=== PATIENT | female | born 1970 | race Caucasian/White ===

== ENCOUNTER → 2018-08-28 | Outpatient (CLI) | payer BC ==
[~2018-08-28] VITALS: Ht 157.5 cm; Wt 63.0 kg
[~2018-08-28] MED LIST: ALLEGRA ALLERG180 MG PO; MOBIC7.5 MG PO
--- NOTE | ~2018-08-28 | HPC ---
[facility] [address] [place] [address] PAIN MANAGEMENT CONSULTATION Name: AWILDA GONZALEZ Room #: [facility].#: [id number] Admission: 08/28/18 Attend Phys: Tio Abebe DO Discharge: Date of : 68 Report #: [id number] THIS REPORT FOR: //name// CC: Anjelica Abebe Referring Physician DATE OF SERVICE: 08/28/2018 CHIEF COMPLAINT: Neck pain and upper back pain. HISTORY OF PRESENT ILLNESS: As you know, the patient is a very pleasant 48-year-old female who reports longstanding neck pain and upper back pain that began in 01/2016, no inciting injury or trauma. The patient indicates pain is aching and constant in sensation. She indicates pain today of 6/10. States that lifting and using her upper extremities tend to exacerbate symptoms as does progression throughout the day. She states Aleve, heat and cold compresses and muscle relaxants tend to improve pain slightly. She has been referred to our service to discuss treatment options for suspected cervical radicular symptoms. ALLERGIES: KEFLEX. CURRENT MEDICATIONS: Fexofenadine 180 mg per day, alprazolam 0.25 mg q. day. SOCIAL HISTORY: The patient denies tobacco, alcohol, IV or illicit drug use. She is working, not receiving workmen's compensation, unaccompanied today. IMAGING: No imaging available. PHYSICAL EXAMINATION: VITAL SIGNS: Blood pressure 126/74, pulse 91, respiratory rate 16 and unlabored. The patient is 100% on room air. Height 5 feet 2 inches tall, weight 138.8 pounds, BMI calculated 25.4. GENERAL: Well-developed, well-nourished, well-hydrated 48-year-old female appearing her stated age, placing current pain score around 6/10. HEENT: Normocephalic, atraumatic. Pupils equal, round, reactive to light. Extraocular muscles are intact. Sclerae nonicteric without injection. NEUROLOGIC: Cranial nerves 2-12 grossly intact. Speech is fluent. The patient deemed an excellent historian. LUNGS: Clear, no wheeze, rhonchi or rales. CARDIOVASCULAR: Regular. No appreciable gallop, no rub. ABDOMEN: Soft, nontender, nondistended, normoactive bowel sounds. EXTREMITIES: Show no clubbing, no cyanosis, and no edema. MUSCULOSKELETAL: There is palpatory tenderness over the paraspinal musculature of the cervical spine, no spinous process tenderness. Upper extremity strength appears symmetrical 5/5, muscle bulk and tone equal and symmetrical when [address] [address] PAIN MANAGEMENT CONSULTATION Name: AWILDA GONZALEZ Anne Room #: [facility] Malini#: [id number] Admission: 08/28/18 Attend Phys: Tio Abebe DO Discharge: Date of : 68 Report #: [id number] comparing left upper extremity to right. Deep tendinous reflexes are symmetrical with biceps, brachioradialis and triceps. Spurling's test is equivocal. Cervical provocation testing is met with increasing pain, specifically with rotation and lateral flexion, mild to moderate restriction of motion with these maneuvers. ASSESSMENT: 1. Cervical radiculopathy. 2. Cervical spondylosis with radiculopathy. 3. Myofascial pain. 4. Chronic intractable pain. PLAN: 1. Based on today's physical exam and history the patient provides, the description the patient uses in regards to pain, the distribution of symptoms that the patient has been experiencing and the longevity of the symptomology, the likely source of this pain is cervical radiculopathy. The patient has been advised in the past she has cervical facet changes as well as uncovertebral facet changes from x-ray imaging. This would correlate with the patient's finding of bilateral nature, likely due to cervical spinal stenosis or to a lesser degree bilateral neural foraminal stenosis. We discussed with the patient treatment options for cervical radicular symptoms today, the following was discussed. We discussed physical therapy, stretching exercise and core strengthening for which the patient has been involved in the past and continues to do on a daily basis at home. We encouraged the patient to continue this activity. We discussed medication management with the addition of a neuropathic pain medication and a nonsteroidal anti-inflammatory. The patient was started on this at our initial visit at our [facility] office. This has not provided significant improvement. She is having no side effects, but no significant improvement. We discussed cervical epidural injections under fluoroscopic guidance and surgical options as other treatment approaches. After reviewing risks and benefits of all proposed treatment options, the patient chose to undergo cervical epidural injection under fluoroscopic guidance. The patient has been advised risks and benefits of a cervical epidural injection. These risks include but are not necessarily limited to bleeding, bruising, infection, worsening pain, no relief of pain, also risk of temporary or permanent muscle weakness, temporary or permanent nerve damage, possible paralysis, post-dural puncture, headache and . The patient states she understood and wished to proceed. 2. No medication changes made at today's visit. The patient will continue current medical therapy as previously prescribed. 3. We will see the patient back in followup visit on an as needed basis for possible next in the series of cervical epidural injections. [address] [address] PAIN MANAGEMENT CONSULTATION Name: AWILDA GONZALEZ Room #: [facility]#: [id number] Admission: 08/28/18 Attend Phys: Tio Abebe DO Discharge: Date of : 68 Report #: [id number] PROCEDURE NOTE DESCRIPTION OF PROCEDURE: C7-T1 cervical epidural steroid injection under fluoroscopic guidance. This is the first procedure of the first series that the patient is undergoing. After obtaining written consent, the patient was taken back to the fluoroscopy suite and placed in a prone position with separate pillows under chest and forehead to decrease cervical lordosis. The skin overlying the cervical area was prepped and draped in an aseptic fashion. The C7-T1 vertebral interspace was identified by AP fluoroscopy. The skin and subcutaneous tissue overlying the target site of injection was anesthetized using 3 mL of 1% lidocaine. A 20-gauge 3-1/2 inch Tuohy needle was advanced under fluoroscopic guidance toward the epidural space using a midline approach. The epidural space was identified using a loss of resistance to air technique. After negative aspiration for heme or cerebrospinal fluid, a total of 0.6 mL of Omnipaque was injected. A cervical epidurogram was confirmed using AP and oblique fluoroscopy. After negative aspiration for heme or cerebrospinal fluid, 5 mL of a solution containing 2 mL 40 mg per mL, 80 mg total triamcinolone, 3 mL of lidocaine 1% was injected in increments. Contrast spread was noted from posterior epidural space. The needle was then retracted approximately [facility] and the needle track was flushed with 1 mL of 1% lidocaine. There were no apparent new sensory deficits in the upper extremities present following the procedure. A sterile bandage was placed over the injection site. The heart rate, pulse oximetry and blood pressure were continuously monitored after the procedure. There were no apparent complications. The patient tolerated the procedure well and was carefully escorted in the recovery room in stable condition. After meeting discharge criteria, the patient was discharged home. <ELECTRONICALLY SIGNED> By: Tio Abebe DO 09/04/18 [id number] Tio Abebe DO /nt
[2018-08-28 14:46] VITALS: BP 126/74
== END | disposition home or self-care (01) ==
LOC: PAIN 10:30
DX: M47.22 Other spondylosis with radiculopathy, cervical region (principal); M79.18 Myalgia, other site; G89.29 Other chronic pain; Z88.8 Allergy status to other drugs, medicaments and biological substances; Z79.899 Other long term (current) drug therapy